=== PATIENT | female | born 1955 | race Caucasian/White ===

== ENCOUNTER → 2020-10-26 | Outpatient (CLI) | payer BC ==
[~2020-10-26] MED LIST: CHLO25B PO; CYCL10 PO; ERGO400 PO; LEVOXYL PO; VENLAFAXINE HCL75 M1 PO; VITAMIN B PO; Vitamin C100 M1 PO
[2020-10-26 19:59] LABS: Anion Gap 4 mmol/L (6-16); Blood Urea Nitrogen 15 mg/dL (8-24); Bun/Creatinine Ratio 17.2 (12.0-20.0); CO2, Blood 30 mmol/L (21-32); Calcium, Blood 9.1 mg/dL (8.5-10.1); Chloride, Blood 106 mmol/L (98-108); Creatinine, Blood 0.87 mg/dL (0.40-1.00); Glomerular Filtration Rate >60 (60-); Glucose, Blood 110 mg/dL (70-99); Sodium, Blood 140 mmol/L (136-145)
== END | disposition home or self-care (01) ==
LOC: LAB 16:45 → LAB SHORT 16:45
PROVIDERS: Nurse Practitioner Family
DX: R60.9 Edema, unspecified (principal)
CPT/HCPCS: 80048

== ENCOUNTER → 2021-03-01 | Outpatient (CLI) | payer BC ==
[2021-03-01 20:12] LABS: Free Thyroxine 0.8 ng/dL (0.70-1.60)
[2021-03-01 20:17] LABS: Thyroid Stimulating Hormone 21.8 uIU/mL (0.360-4.800)
== END | disposition home or self-care (01) ==
LOC: LAB 15:48 → LAB SHORT 15:48
PROVIDERS: Nurse Practitioner Family
DX: E03.9 Hypothyroidism, unspecified (principal); R73.03 Prediabetes
CPT/HCPCS: 83036; 84439; 84443

== ENCOUNTER 2022-01-22 09:04 | Day surgery (SDC) | payer BC, MEDICARE ==
[~2022-01-22] VITALS: Ht 170.2 cm; Wt 133.8 kg
[~2022-01-22 09:04] MED LIST changes: +ATOR40TA PO; +LEVSOD150 PO; +VENL75ER PO
--- NOTE | 2022-01-22 10:40 | NUR ---
Ambulatory in Day Surgery WITH WALKER. History, Chart, Medications and Allergies reviewed before start of procedure.Patient confirms NPO status and agrees with scheduled surgery. Pre-Op teaching done. Pt verbalizes understanding. Patient reports completing Chlorhexadine shower X2 prior to admission to hospital.
[2022-01-22] MEDS ORDERED: OXAYDO5 M1 PO (14:51)
[2022-01-22] MEDS ORDERED: PROM25 PO (14:52)
[2022-01-22] MEDS ORDERED: XARELTO20 MG PO (14:53)
[2022-01-22] MEDS ORDERED: SULTRIDS PO (14:53)
--- NOTE | 2022-01-22 17:04 | NUR ---
SHIFT SUMMARY: PATIENT CAME BACK FROM PACU TODAY 01/22/22 AT 1645. POD 0 RIGHT TOTAL KNEE PATIENT IS A&OX4. VS ARE WNL AND IS ON 2L NC WITH >90% OXYGEN SATS. PATIENT DENIES PAIN AND REFUSES PAIN MEDICATIONS. IV FLUIDS RUNNING. PATIENT DENIES NUMBNESS AND TINGLING AT THIS TIME. CAN MOVE FINGERS AND TOES WHEN ASKED. PATIENTS RIGHT KNEE IS EDWIN WRAPPED AND IS C/D/I. POLAR PACK IN PLACE. TOLERATING SMALL AMOUNTS OF PO INTAKE. CALLS APPROPRIATELY. CALL LIGHT WITHIN REACH. THE PLAN IS TO MANAGE PAIN AND TO WORK WITH PT TOMORROW.
[2022-01-23 04:21] LABS: BASOPHILS ABSOLUTE AUTO 0.01 K/mm3 (0.00-0.23); BASOPHILS PERCENT AUTO 0 % (0-2); EOSINOPHILS PERCENT AUTO 0 % (0-6); Hematocrit 38.7 % (33.0-51.0); Hemoglobin 12.6 g/dL (11.5-16.0); IMMATURE GRAN ABSOLUTE AUTO 0.03 K/mm3 (0.00-0.10); IMMATURE GRAN PERCENT AUTO 0 % (0-1); LYMPHOCYTES ABSOLUTE AUTO 0.63 K/mm3 (0.84-5.20); LYMPHOCYTES PERCENT AUTO 7 % (21-46); MONOCYTES ABSOLUTE AUTO 0.92 K/mm3 (0.16-1.47); MONOCYTES PERCENT AUTO 10 % (4-13); Mean Corpuscular HGB 31.6 pg (26.0-34.0); Mean Corpuscular HGB Conc 32.6 g/dL (31.5-36.5); Mean Corpuscular Volume 97 fL (80-100); Mean Platelet Volume 9.6 fL (9.1-12.4); NEUTROPHILS ABSOLUTE AUTO 8.09 K/mm3 (1.96-9.15); NEUTROPHILS PERCENT AUTO 84 % (41-73); Platelet Count 323 K/mm3 (150-400); RDW Coefficient Variation 11.9 % (11.7-14.2); RDW Standard Deviation 42.3 fL (35.1-46.3); Red Blood Cell Count 3.99 M/mm3 (3.80-5.20); White Blood Cell Count 9.68 K/mm3 (4.00-11.30)
[2022-01-23 04:42] LABS: Magnesium, Blood 1.9 mg/dL (1.6-2.4)
[2022-01-23 04:43] LABS: Bun/Creatinine Ratio 21.1 (12.0-20.0); Calcium, Blood 8.6 mg/dL (8.5-10.1); Creatinine, Blood 0.67 mg/dL (0.40-1.00)
--- NOTE | 2022-01-23 05:50 | NUR ---
PT IS A&OX4, 1PA W/ FWW TO BR AND IS ABLE TO MAKE NEEDS KNOWN. POST OP DAY 1 FOR R TKA, CSM IS INTACT AND NO NUMBNESS OR TINGLING REPORTED. PAIN IS WELL CONTROLLED WITH SCHEDULED TORADOL AND TYLENOL. PT HAS AMBULATED TO BR AND VOIDED THIS SHIFT. HAS EDWIN IN PLACE, DRESSING IS CDI. WILL CONTINUE TO MONITOR THIS PT AND GIVE REPORT TO ONCOMING NURSE.
--- NOTE | 2022-01-23 12:59 | NUR ---
SHIFT SUMMARY PT A&OX4, VSS/RA, IV DC'D, RYDER PO, VOIDING WELL, AMB SBA W/FWW & GB. LEFT FLOOR VIA WC WITH MAIN LINE ASSEMBLER TO GO HOME WITH , WITH ALL PERSONAL POSSESSIONS INCLUDING DC PACKET, 2 AQUACEL DRESSINGS; PT CONFIRMED SCRIPTS FILLED AND READY FOR PICKUP INCLUDING XARELTO. DC INS PROVIDED. PT REP UNDERSTANDING THOSE INSTRUCTIONS INCLUDING AQUACEL DRESSING CHANGES 3-5 DAYS.
== END 2022-01-23 13:30 | disposition home or self-care (01) ==
LOC: ORSCMMR 09:04 → ORD 11:15 → SURS 16:52 → ORSCMMR 01-23 13:30
PROVIDERS: Orthopaedic Surgery
PROC: 8E0YXBZ Computer Assisted Procedure of Lower Extremity (ICD-10-PCS; principal; 2022-01-22 11:15)
PROC: 0SRC0J9 Replacement of Right Knee Joint with Synthetic Substitute, Cemented, Open Approach (ICD-10-PCS; principal; 2022-01-22 11:15)
DX: M17.0 Bilateral primary osteoarthritis of knee (principal); Z86.718 Personal history of other venous thrombosis and embolism; E66.01 Morbid (severe) obesity due to excess calories; Z68.42 Body mass index [BMI] 45.0-49.9, adult; E03.9 Hypothyroidism, unspecified; J45.909 Unspecified asthma, uncomplicated; Z79.01 Long term (current) use of anticoagulants; G47.33 Obstructive sleep apnea (adult) (pediatric); Z79.899 Other long term (current) drug therapy
CPT/HCPCS: 36415; 73560-RT; 80048; 83735; 85025; 97110; 97161; A9270; C1713; C1776; J0690; J1100; J1170; J1885; J2250; J2405; J2704; J3010; J7120

== ENCOUNTER → 2023-12-01 | Outpatient (CLI) | payer OTHER ==
[~2023-12-01] MED LIST changes: +OXAYDO5 M1 PO; +PROM25 PO; +SULTRIDS PO; +XARELTO20 MG PO
[2023-12-01 17:41] LABS: Alanine Aminotransfer (ALT/SGP 84 U/L (12-78); Albumin, Blood 3.7 g/dL (3.4-5.0); Albumin/Globulin Ratio 1.2 (0.8-1.8); Alk Phos 116 U/L (50-136); Anion Gap 8 mmol/L (3-11); Aspartate Aminotrans (AST/SGOT 60 U/L (12-37); Bilirubin, Total 0.6 mg/dL (0.1-1.0); Blood Urea Nitrogen 15 mg/dL (8-24); Bun/Creatinine Ratio 21.4 (12.0-20.0); CHOL/HDL RATIO 2.9; CO2, Blood 28 mmol/L (21-32); Calcium, Blood 9.1 mg/dL (8.5-10.1); Chloride, Blood 107 mmol/L (98-108); Cholesterol 239 mg/dL (50-200); Globulin, Blood 3.1 g/dL (2.2-4.0); Glomerular Filtration Rate 94 (60-); Glucose, Blood 121 mg/dL (70-99); HDL Cholesterol 82 mg/dL (>39); LDL/HDL RATIO 1.7; Low Density Lipoprotein Chol 138 mg/dL (0-110); Potassium, Blood 3.7 mmol/L (3.5-5.5); Sodium, Blood 139 mmol/L (136-145); Total Protein, Blood 6.8 g/dL (6.4-8.2); Triglycerides 97 mg/dL (30-160); Very Low Density Lipoprot Chol 19 mg/dL (6-32)
== END | disposition home or self-care (01) ==
LOC: LAB SHORT 15:11 → LAB 15:11
PROVIDERS: Nurse Practitioner Family
DX: E03.9 Hypothyroidism, unspecified (principal); E78.5 Hyperlipidemia, unspecified
CPT/HCPCS: 80053; 80061; 84443

== ENCOUNTER → 2024-02-01 | Outpatient (CLI) | payer OTHER ==
[2024-02-01 13:24] LABS: Alanine Aminotransfer (ALT/SGP 58 U/L (12-78); Albumin, Blood 3.9 g/dL (3.4-5.0); Albumin/Globulin Ratio 1.2 (0.8-1.8); Alk Phos 127 U/L (50-136); Anion Gap 7 mmol/L (3-11); Aspartate Aminotrans (AST/SGOT 40 U/L (12-37); Bilirubin, Total 0.7 mg/dL (0.1-1.0); Blood Urea Nitrogen 11 mg/dL (8-24); Bun/Creatinine Ratio 15.4 (12.0-20.0); CHOL/HDL RATIO 1.8; CO2, Blood 31 mmol/L (21-32); Calcium, Blood 9.4 mg/dL (8.5-10.1); Chloride, Blood 108 mmol/L (98-108); Cholesterol 183 mg/dL (50-200); Creatinine, Blood 0.72 mg/dL (0.40-1.00); Globulin, Blood 3.2 g/dL (2.2-4.0); Glomerular Filtration Rate 90 (60-); Glucose, Blood 113 mg/dL (70-99); HDL Cholesterol 104 mg/dL (>39); LDL/HDL RATIO 0.6; Low Density Lipoprotein Chol 64 mg/dL (0-110); Potassium, Blood 3.7 mmol/L (3.5-5.5); Sodium, Blood 142 mmol/L (136-145); Total Protein, Blood 7.1 g/dL (6.4-8.2); Triglycerides 76 mg/dL (30-160); Very Low Density Lipoprot Chol 15 mg/dL (6-32)
== END | disposition home or self-care (01) ==
LOC: LAB 09:45 → LAB SHORT 09:45
PROVIDERS: Nurse Practitioner Family
DX: E03.9 Hypothyroidism, unspecified (principal); E78.5 Hyperlipidemia, unspecified; R74.8 Abnormal levels of other serum enzymes
CPT/HCPCS: 80053; 80061; 84443

== ENCOUNTER → 2024-06-06 | Outpatient (CLI) | payer OTHER ==
[2024-06-06 19:30] LABS: BASOPHILS ABSOLUTE AUTO 0.03 K/mm3 (0.00-0.23); BASOPHILS PERCENT AUTO 1 % (0-2); EOSINOPHILS ABSOLUTE AUTO 0.12 K/mm3 (0.00-0.68); EOSINOPHILS PERCENT AUTO 2 % (0-6); Hematocrit 42.1 % (33.0-51.0); Hemoglobin 13.7 g/dL (11.5-16.0); IMMATURE GRAN ABSOLUTE AUTO 0.01 K/mm3 (0.00-0.10); IMMATURE GRAN PERCENT AUTO 0 % (0-1); LYMPHOCYTES ABSOLUTE AUTO 1.59 K/mm3 (0.84-5.20); LYMPHOCYTES PERCENT AUTO 32 % (21-46); MONOCYTES ABSOLUTE AUTO 0.41 K/mm3 (0.16-1.47); MONOCYTES PERCENT AUTO 8 % (4-13); Mean Corpuscular HGB 32.1 pg (26.0-34.0); Mean Corpuscular HGB Conc 32.5 g/dL (31.5-36.5); Mean Corpuscular Volume 99 fL (80-100); Mean Platelet Volume 9.5 fL (9.1-12.4); NEUTROPHILS ABSOLUTE AUTO 2.87 K/mm3 (1.96-9.15); NEUTROPHILS PERCENT AUTO 57 % (41-73); Platelet Count 430 K/mm3 (150-400); RDW Coefficient Variation 12.5 % (11.7-14.2); RDW Standard Deviation 44.8 fL (35.1-46.3); Red Blood Cell Count 4.27 M/mm3 (3.80-5.20); White Blood Cell Count 5.03 K/mm3 (4.00-11.30)
[2024-06-06 19:51] LABS: Alanine Aminotransfer (ALT/SGP 46 U/L (12-78); Albumin, Blood 3.6 g/dL (3.4-5.0); Albumin/Globulin Ratio 1.1 (0.8-1.8); Alk Phos 132 U/L (50-136); Anion Gap 9 mmol/L (3-11); Aspartate Aminotrans (AST/SGOT 34 U/L (12-37); Bilirubin, Total 0.4 mg/dL (0.1-1.0); Blood Urea Nitrogen 8 mg/dL (8-24); Bun/Creatinine Ratio 12.2 (12.0-20.0); CHOL/HDL RATIO 1.7; CO2, Blood 28 mmol/L (21-32); Calcium, Blood 8.6 mg/dL (8.5-10.1); Chloride, Blood 106 mmol/L (98-108); Cholesterol 157 mg/dL (50-200); Creatinine, Blood 0.66 mg/dL (0.40-1.00); Free Thyroxine 1.22 ng/dL (0.70-1.60); Globulin, Blood 3.2 g/dL (2.2-4.0); Glomerular Filtration Rate 95 (60-); Glucose, Blood 107 mg/dL (70-99); HDL Cholesterol 93 mg/dL (>39); LDL/HDL RATIO 0.5; Low Density Lipoprotein Chol 46 mg/dL (0-110); Sodium, Blood 139 mmol/L (136-145); Total Protein, Blood 6.8 g/dL (6.4-8.2); Triglycerides 91 mg/dL (30-160); Very Low Density Lipoprot Chol 18 mg/dL (6-32)
== END ==
LOC: LAB 16:46 → LAB SHORT 16:46
PROVIDERS: Nurse Practitioner Family
DX: E03.9 Hypothyroidism, unspecified (principal); E78.5 Hyperlipidemia, unspecified; R74.8 Abnormal levels of other serum enzymes; R73.03 Prediabetes
CPT/HCPCS: 80053; 80061; 83036; 84439; 84443; 85025

== ENCOUNTER → 2024-09-02 | Outpatient (CLI) | payer OTHER ==
[2024-09-02 17:48] LABS: BASOPHILS ABSOLUTE AUTO 0.02 K/mm3 (0.00-0.23); BASOPHILS PERCENT AUTO 1 % (0-2); EOSINOPHILS ABSOLUTE AUTO 0.06 K/mm3 (0.00-0.68); EOSINOPHILS PERCENT AUTO 2 % (0-6); Hematocrit 43.3 % (33.0-51.0); Hemoglobin 14.1 g/dL (11.5-16.0); IMMATURE GRAN ABSOLUTE AUTO 0.01 K/mm3 (0.00-0.10); IMMATURE GRAN PERCENT AUTO 0 % (0-1); LYMPHOCYTES ABSOLUTE AUTO 1.22 K/mm3 (0.84-5.20); LYMPHOCYTES PERCENT AUTO 31 % (21-46); MONOCYTES ABSOLUTE AUTO 0.41 K/mm3 (0.16-1.47); MONOCYTES PERCENT AUTO 11 % (4-13); Mean Corpuscular HGB 32.9 pg (26.0-34.0); Mean Corpuscular HGB Conc 32.6 g/dL (31.5-36.5); Mean Corpuscular Volume 101 fL (80-100); NEUTROPHILS ABSOLUTE AUTO 2.19 K/mm3 (1.96-9.15); NEUTROPHILS PERCENT AUTO 56 % (41-73); Platelet Count 444 K/mm3 (150-400); RDW Coefficient Variation 13.1 % (11.7-14.2); RDW Standard Deviation 48.9 fL (35.1-46.3); Red Blood Cell Count 4.28 M/mm3 (3.80-5.20); White Blood Cell Count 3.91 K/mm3 (4.00-11.30)
[2024-09-02 20:26] LABS: Bun/Creatinine Ratio 23.2 (12.0-20.0); Creatinine, Blood 0.78 mg/dL (0.40-1.00); Potassium, Blood 3.3 mmol/L (3.5-5.5)
[2024-09-05 14:49] LABS: HEPATITIS C AB CIA INTERP Negative (Negative); HEPATITIS C ANTIBODY CIA INDEX 0.12 IV
== END | disposition home or self-care (01) ==
LOC: LAB SHORT 15:48 → LAB 15:48
PROVIDERS: Nurse Practitioner Family
DX: Z11.59 Encounter for screening for other viral diseases (principal); E78.5 Hyperlipidemia, unspecified
CPT/HCPCS: 80048; 85025; 86803

== ENCOUNTER → 2024-10-06 | Outpatient (CLI) | payer OTHER ==
[2024-10-06 20:40] LABS: Bun/Creatinine Ratio 18.8 (12.0-20.0); Calcium, Blood 9.3 mg/dL (8.5-10.1); Creatinine, Blood 0.8 mg/dL (0.40-1.00); Potassium, Blood 4.6 mmol/L (3.5-5.5)
== END | disposition home or self-care (01) ==
LOC: LAB 17:39 → LAB SHORT 17:39
PROVIDERS: Nurse Practitioner Family
DX: R73.03 Prediabetes (principal); R60.9 Edema, unspecified
CPT/HCPCS: 80048; 83036

== ENCOUNTER → 2025-05-30 | Outpatient (CLI) | payer OTHER ==
[2025-05-30 19:59] LABS: Anion Gap 9 mmol/L (3-11); Blood Urea Nitrogen 15 mg/dL (8-24); CHOL/HDL RATIO 1.9; CO2, Blood 27 mmol/L (21-32); Calcium, Blood 9.0 mg/dL (8.5-10.1); Chloride, Blood 105 mmol/L (98-108); Cholesterol 194 mg/dL (50-200); Creatinine, Blood 0.72 mg/dL (0.40-1.00); Glucose, Blood 115 mg/dL (70-99); HDL Cholesterol 101 mg/dL (>39); LDL/HDL RATIO 0.7; Low Density Lipoprotein Chol 69 mg/dL (0-110); Potassium, Blood 4.2 mmol/L (3.5-5.5); Sodium, Blood 137 mmol/L (136-145); Thyroid Stimulating Hormone 0.830 uIU/mL (0.360-4.800); Triglycerides 121 mg/dL (30-160); Very Low Density Lipoprot Chol 24 mg/dL (6-32)
== END ==
LOC: LAB 17:34 → LAB SHORT 17:34
PROVIDERS: Nurse Practitioner Family
DX: E78.5 Hyperlipidemia, unspecified (principal); R73.01 Impaired fasting glucose; E03.9 Hypothyroidism, unspecified
CPT/HCPCS: 80048; 80061; 83036; 84443